=== PATIENT | female | born 1960 | race Caucasian/White ===

== ENCOUNTER 2019-06-05 08:44 | Outpatient (CLI) | payer OTHER, SELFPAY ==
[2019-06-05 09:19] LABS: Hematocrit 42.6 % (37.0-47.0); Hemoglobin 13.4 g/dL (12.0-15.0); Immature Platelet Fraction Pct 4.6 % (0.9-11.2); Mean Corpuscular HGB Conc 31.5 g/dl (32-36); Mean Corpuscular Hemoglobin 27.8 pg (26-34); Mean Corpuscular Volume 88.4 fl (80-100); Mean Platelet Volume 13.4 fl (7.4-10.4); Platelet Count Result 328 k/mm3 (150-375); Red Blood Count 4.82 M/mm3 (4.2-5.4); Red Cell Distribution Width 14.1 % (11.5-14.5); White Blood Count 4.8 K/mm3 (4.5-10.0)
[2019-06-05 09:43] LABS: Creatinine Urine 139.3 mg/dL
[2019-06-05 09:46] LABS: Alanine Aminotransferase 22 U/L (4-35); Albumin Level 4.5 g/dL (3.5-5.1); Alkaline Phosphatase 44 U/L (38-126); Aspartate Amino Transferase 32 U/L (14-36); Bilirubin,Total 0.3 mg/dL (0.2-1.3); Blood Urea Nitrogen 19 mg/dL (7-17); Calcium 9.2 mg/dL (8.4-10.2); Carbon Dioxide 28 mmol/L (22-30); Chloride 104 mmol/L (98-107); Cholesterol 145 mg/dL (0-200); Estimated Glomerular Filt Rate 57; Glucose 98 mg/dL (65-105); HDL Direct 60 mg/dL; Potassium 4.3 mmol/L (3.4-5.0); Sodium 139 mmol/L (137-145); Triglycerides 78 mg/dL (<150)
[2019-06-05 09:48] LABS: MALB Creatinine Ratio 8.8 mg/g (0-30); Microalbumin Urine Random 12.3 mg/L (0-16.7)
[2019-06-05 09:58] LABS: Free T4 Free Thyroxine 1.21 ng/mL (0.78-2.19); Vitamin D 25 Hydroxy 53.7 ng/mL
[2019-06-05 10:06] LABS: LDL Cholesterol Direct 57 mg/dL
[2019-06-05 10:12] LABS: Basophils Absolute Manual 0.04 K/mm3 (0.0-0.1); Basophils Percent Manual 1 % (0-1); Eosinophils Absolute Manual 0.09 K/mm3 (0.02-0.5); Eosinophils Percent Manual 2 % (0-4); Lymphocytes Absolute Manual 1.68 K/mm3 (1.1-4.5); Monocytes Absolute Manual 0.28 K/mm3 (0.1-0.90); Monocytes Percent Manual 6 % (3-9); Neutrophils Percent Manual 56 % (46-73); Platelet Estimate Adequate (Adequate); Total Cells Counted 100
[2019-06-05 10:13] LABS: Atypical Lymphocytes Present; Hypochromasia 2+ (NORMAL)
[2019-06-05 10:26] LABS: Total Triiodothyronine (T3) 0.99 NG/ML (0.97-1.69)
[2019-06-05 11:00] LABS: Parathyroid Intact 26.8 pg/mL (7.5-53.5)
== END 2019-06-05 08:45 | disposition home or self-care (01) ==
PROVIDERS: PCP Family Medicine; Visit Provider Family Medicine
DX: E78.2 Mixed hyperlipidemia (principal); I50.9 Heart failure, unspecified; E21.0 Primary hyperparathyroidism; E55.9 Vitamin D deficiency, unspecified; N18.2 Chronic kidney disease, stage 2 (mild); I12.9 Hypertensive chronic kidney disease with stage 1 through stage 4 chronic kidney disease, or unspecified chronic kidney disease
CPT/HCPCS: 36415; 80053; 80061; 82043; 82306; 83970; 84439; 84443; 84480; 85025; 85055

== ENCOUNTER 2019-09-03 14:43 | Emergency (ER) | payer OTHER, SELFPAY ==
--- NOTE | ~2019-09-03 | XR_ITS ---
EXAMINATION: XR chest 2V DATE: 09/03/2019 15:08 INDICATION: Shortness of breath. TECHNIQUE: Frontal and lateral views of the chest were obtained. COMPARISON: Chest 2 views 04/23/2016, CT abdomen 10/07/2016 FINDINGS: The chest demonstrates clear lungs without pneumonia, pleural effusion, or pneumothorax. Th e heart size is normal. IMPRESSION: 1. No acute cardiopulmonary disease. Reviewed, dictated and finalized at location A.
--- NOTE | 2019-09-03 14:47 | ECG_ITS ---
Measurements Intervals Tilly Rate: 74 P: 48 WI: 133 QRS: -29 QRSD: 97 T: 5 QT: 393 QTc: 438 Interpretive Statements SINUS RHYTHM NONSPECIFIC T-WAVE ABNORMALITY- ANTEROLAT/INF LEADS BORDERLINE ECG Electronically Signed On 09-03-2019 15:45:18 CDT by Cesar Win D.O.
[2019-09-03 14:49] VITALS: BP 157/90; PULSE 75; RESP 26; TEMP 36.4; O2SAT 100
[2019-09-03 15:03] LABS: Basophils Absolute Auto 0.1 K/mm3 (0.0-0.1); Eosinophils Absolute Auto 0.1 K/mm3 (0-0.3); Hemoglobin 14.3 g/dL (12.0-15.0); Immature Granulocyte Absolute 0.01 K/mm3 (0.00-0.031); Immature Granulocyte Percent A 0.2 % (0-0.5); Lymphocytes Absolute Auto 1.99 K/mm3 (0.9-3.2); Lymphocytes Percent Auto 39.3 % (18.3-44.2); Mean Corpuscular HGB Conc 33.3 g/dl (32-36); Mean Corpuscular Hemoglobin 28.4 pg (26-34); Mean Corpuscular Volume 85.3 fl (80-100); Mean Platelet Volume 13.1 fl (7.4-10.4); Monocytes Absolute Auto 0.3 K/mm3 (0.1-0.6); Monocytes Percent Auto 5.3 % (2.6-8.5); Neutrophils Absolute Auto 2.7 K/mm3 (1.3-6.7); Neutrophils Percent Auto 53.2 % (45.5-73.1); Platelet Count Result 387 k/mm3 (150-375); Red Blood Count 5.04 M/mm3 (4.2-5.4); Red Cell Distribution Width 13.9 % (11.5-14.5); White Blood Count 5.1 K/mm3 (4.5-10.0)
[2019-09-03 15:13] LABS: Blood Urea Nitrogen 16 mg/dL (7-17); Calcium 9.6 mg/dL (8.4-10.2); Carbon Dioxide 23 mmol/L (22-30); Chloride 106 mmol/L (98-107); Estimated Glomerular Filt Rate > 60; Glucose 135 mg/dL (65-105); Potassium 3.8 mmol/L (3.4-5.0); Sodium 139 mmol/L (137-145)
[2019-09-03 18:00] VITALS: BP 141/80; PULSE 60; RESP 17; O2SAT 100
[2019-09-03 18:13] VITALS: PULSE 58; O2SAT 100
--- NOTE | 2019-09-03 19:26 | ED.SOB ---
HPI - SOB/Dyspnea General Chief Complaint: Shortness of Breath/Dyspnea Stated Complaint: SOB Time Seen by Provider: 09/03/19 18:52 Source: patient Mode of arrival: ambulatory Limitations: no limitations History of Present Illness HPI Narrative: This is a 59 year old female that presents to the ER for cold symptoms x 2 days. Reports cough, myalgias, and headache. Reports she started to feel short of breath today which prompted her to be seen. Reports history of asthma. Denies fever or chest pain. Related Data Home Medications Medication Instructions Recorded Confirmed albuterol sulfate [Ventolin HFA] See Rx Instructions .ROUTE 09/03/19 09/03/19 .COMPLEX PRN budesonide-formoterol [Symbicort] INHALATION BID 09/03/19 fenofibrate mg DAILY 09/03/19 furosemide DAILY 09/03/19 lisinopril DAILY 09/03/19 sertraline mg DAILY 09/03/19 sertraline mg DAILY 09/03/19 simvastatin mg HS 09/03/19 Allergies Allergy/AdvReac Type Severity Reaction Status Date / Time No Known Allergies Allergy Verified 09/03/19 18:16 Review of Systems Review of Systems: Narrative: CONSTITUTIONAL: Denies fever ENT: Reports rhinorrhea, congestion. Denies sore throat, or otalgia. CARDIOVASCULAR: Denies chest pain RESPIRATORY: Reports cough and dyspnea. All systems reviewed & are unremarkable except as noted in HPI and below PMFSH Past Medical History Medical History (Updated 09/03/19 @ 20:31 by Patsy Mcduffie PA-C) History of asthma History of depression History of hyperlipidemia History of hypertension Family History Family History (Updated 09/20/16 @ 11:31 by DOCTOR UNKNOWN) Other Family history of elevated blood lipids Hypertension Social History Social History Smoking status: Never smoker Alcohol intake: current Gender identity (if verbalized by the patient): Female Exam Narrative: Exam Narrative: GENERAL: Well-appearing, well-nourished, and in no acute distress. HEAD: Normocephalic, atraumatic. EYES: EOMI. ENT: Nares clear, no rhinorrhea or epistaxis. Mucous membranes moist. Oropharynx without tonsillar hypertrophy exudate or other lesions. Bilateral TMs pearly renee non-bulging NECK: Supple. No adenopathy or masses. No carotid bruits or JVD CHEST: Clear to auscultation. No respiratory distress. No wheezes rales or rhonchi HEART: Regular rate and rhythm. No murmur heard. Normal peripheral pulses. EXTREMITIES: Normal range of motion. No edema. SKIN: Warm, dry, no rash. NEURO: No focal deficits. Alert and oriented x3. PSYCH: Normal mood and affect Course Vital Signs Vital signs: Vital Signs Temperature 97.6 F 09/03/19 14:49 Pulse Rate 75 09/03/19 14:49 Respiratory Rate 26 H 09/03/19 14:49 Blood Pressure 157/90 H 09/03/19 14:49 Pulse Oximetry 100 09/03/19 14:49 Temperature 97.6 F 09/03/19 14:49 Pulse Rate 58 L 09/03/19 18:13 Respiratory Rate 17 09/03/19 18:00 Blood Pressure 141/80 H 09/03/19 18:00 Pulse Oximetry 100 09/03/19 18:13 MDM - SOB/Dyspnea MDM Narrative Medical decision making narrative: Patient presents to the emergency department for cold symptoms x2 days. She is afebrile and nontoxic-appearing. Normal oxygen saturation on room air. CBC and metabolic panel without concerning findings. D-dimer is not elevated. Chest x-ray without acute changes. EKG without concerning changes. SARS-CoV-2 sent. Patient is stable felt appropriate further outpatient evaluation. Patient is to follow-up with primary care doctor. She was given warnings to return to the ER Lab Data Attestation: I reviewed the patient's lab results. Result diagrams: 09/03/19 14:54 09/03/19 14:54 Labs: Lab Results 09/03/19 09/03/19 09/03/19 Range/Units 14:54 14:54 14:54 WBC 5.1 (4.5-10.0) K/mm3 RBC 5.04 (4.2-5.4) M/mm3 Hgb 14.3 (12.0-15.0) g/dL Hct 43.0 (37.0-47.0) % MCV 85.3 (80-100) fl MCH 28.4 (26-34) pg MCHC 33.3
[2019-09-03 20:06] LABS: D Dimer 0.27 ug/mL (<0.48)
[2019-09-03 20:49] VITALS: BP 141/85; PULSE 87; RESP 18; TEMP 36.8; O2SAT 99
[2019-09-04 14:52] LABS: SARS-CoV-2 RNA PCR Negative
== END 2019-09-03 20:50 | disposition home or self-care (01) ==
PROVIDERS: Emergency Medicine; Physician Assistant; Emergency Provider Emergency Medicine; PCP Family Medicine
DX: Z20.828 Contact with and (suspected) exposure to other viral communicable diseases (principal); B34.9 Viral infection, unspecified; J45.909 Unspecified asthma, uncomplicated; F32.9 Major depressive disorder, single episode, unspecified; E78.5 Hyperlipidemia, unspecified; I10 Essential (primary) hypertension
CPT/HCPCS: 36415; 71046; 80048; 85025; 85055; 85380; 87635; 93005; 99284; C9803; U0003

== ENCOUNTER 2020-06-02 14:53 | Outpatient (CLI) | payer OTHER, SELFPAY ==
--- NOTE | ~2020-06-02 | MM_ITS ---
EXAMINATION: MM screening [facility] BI w mirna HISTORY: Screening TECHNIQUE: Craniocaudal and mediolateral oblique 3-D tomosynthesis images were obtained and synthetic 2-D images were generated. CAD analysis was submitted and interpreted. COMPARISON: Comparison to multiple prior studies sequentially, with oldest reviewed study dated 01/21. BREAST PARENCHYMAL COMPOSITION: There are scattered areas of fibroglandular density. FINDINGS: There is no evidence of suspicious mass, calcification, or architectural distortion to sugg est malignancy in either breast. There has been no suspicious interval change. IMPRESSION: 1. No mammographic evidence of malignancy. 2. Recommend routine screening mammography in one year. BI-RADS Category 1: Negative Reviewed, dictated and finalized at location A.
== END 2020-06-02 14:54 | disposition home or self-care (01) ==
PROVIDERS: PCP Family Medicine; Visit Provider Obstetrics & Gynecology
DX: Z12.31 Encounter for screening mammogram for malignant neoplasm of breast (principal)
CPT/HCPCS: 77063; 77067

== ENCOUNTER 2020-06-05 10:22 | Outpatient (CLI) | payer OTHER, SELFPAY | END 2020-06-05 10:23 | disposition home or self-care (01) | LOC: ANHCOVIDVC 10:23 | PROVIDERS: PCP Family Medicine | DX: Z23 Encounter for immunization (principal) | CPT/HCPCS: 0001A; 91300 ==

== ENCOUNTER 2020-06-26 10:25 | Outpatient (CLI) | payer OTHER, SELFPAY | END 2020-06-26 10:26 | disposition home or self-care (01) | LOC: ANHCOVIDVC 10:25 | PROVIDERS: PCP Family Medicine | DX: Z23 Encounter for immunization (principal) | CPT/HCPCS: 0002A; 91300 ==

== ENCOUNTER 2021-10-14 08:02 | Outpatient (CLI) | payer OTHER, SELFPAY ==
--- NOTE | ~2021-10-14 | MM_ITS ---
EXAMINATION: MM screening [facility] BI w mirna HISTORY: Screening TECHNIQUE: Craniocaudal and mediolateral oblique 3-D tomosynthesis images were obtained and synthetic 2-D images were generated. CAD analysis was submitted and interpreted. COMPARISON: Comparison to multiple prior studies sequentially, with oldest reviewed study dated 01/21. BREAST PARENCHYMAL COMPOSITION: The breasts are almost entirely fatty. FINDINGS: There is no evidence of suspicious mass, calcification, or architectural distortion to sugg est malignancy in either breast. There has been no suspicious interval change. IMPRESSION: 1. No mammographic evidence of malignancy. 2. Recommend routine screening mammography in one year. BI-RADS Category 1: Negative Reviewed, dictated and finalized at location A.
== END 2021-10-14 08:03 | disposition home or self-care (01) ==
PROVIDERS: PCP Family Medicine; Visit Provider Obstetrics & Gynecology Gynecology
DX: Z12.31 Encounter for screening mammogram for malignant neoplasm of breast (principal)
CPT/HCPCS: 77063; 77067

== ENCOUNTER 2023-05-16 07:40 | Outpatient (CLI) | payer OTHER, SELFPAY ==
--- NOTE | ~2023-05-16 | MM_ITS ---
EXAMINATION: MM screening [facility] BI w mirna HISTORY: Screening mammogram TECHNIQUE: Craniocaudal and mediolateral oblique 3-D tomosynthesis images were obtained and synthetic 2-D images were generated. CAD analysis was submitted and interpreted. COMPARISON: 10/10/2021, 06/02/2020 bilateral screening mammogram examinations BREAST PARENCHYMAL COMPOSITION: The breasts are almost entirely fatty. FINDINGS: There is no evidence of suspicious mass, calcification, or architectural distortion to sugg est malignancy in either breast. There has been no suspicious interval change. IMPRESSION: 1. No mammographic evidence of malignancy. 2. Recommend routine screening mammography in one year. BI-RADS Category 1: Negative Reviewed, dictated and finalized at location A.
== END 2023-05-16 07:41 | disposition home or self-care (01) ==
LOC: ANHIMG 07:43
PROVIDERS: PCP Family Medicine; Visit Provider Nurse Practitioner
DX: Z12.31 Encounter for screening mammogram for malignant neoplasm of breast (principal)
CPT/HCPCS: 77063; 77067

== ENCOUNTER 2023-08-18 13:43 | Outpatient (CLI) | payer OTHER, SELFPAY ==
--- NOTE | ~2023-08-18 | DEXA_ITS ---
? Bone Density Report? Name:? ZAHEER COWAN Patient ID:??? [id number] Age:? 63 Sex:? Female Ethnicity:? White Date of : 1960 Indication: postmenopausal; screening for osteoporosis; height loss; Referring Provider: YUDI, JEFFERSON Study: Bone densitometry was performed. Exam Date: August 18, 2023 Accession number: [id number] Bone Density: Region? BMD??? T-score? Z-score?? Classification AP Spine(L1-L4)? 1.099??? 0.5?2.2? Normal Femoral Neck (Left)? 0.794?? -0.5? 1.0? Normal Total Hip (Left)? 0.940??? 0.0? 1.1? Normal Femoral Neck (Right)? 0.799?? -0.4? 1.0? Normal Total Hip (Right)? 0.938??? 0.0? 1.1? Normal Femoral Neck Mean? 0.796?? -0.5? 1.0? Normal Total Hip Mean? 0.939??? 0.0? 1.1? Normal World Health Organization criteria for BMD impression classify patients as: Normal (T-score at or above -1.0), Osteopenia (T-score between -1.0 and -2.5), or Osteoporosis (T-score at or below -2.5). 10-year Fracture Risk: FRAX not reported because: ? All T-scores for Spine Total, Hip Total, Femoral Neck at or above -1.0 Clinical Information Provided by Patient: Has used the following medications: Vitamin D, Calcium Patient maximum height was 70 Menopause Age: 49 No regular weight bearing exercise Drinks caffeinated beverages Onset of menses at age 10 Number of children 0 Impression: The patient has normal bone mass. Discussion: BONE DENSITY IS ABOVE THE MINIMUM DESIRABLE LEVEL AT ALL SKELETAL SITES TESTED. This patient?s bone mineral density is above the minimum desirable level (T- score -1.0 or better) at all sites measured. The patient should follow a healthful lifestyle (good nutrition with adequate calcium and vitamin D, and appropriate weight-bearing exercise). Follow-Up: Consider repeating this study in 5 years or sooner if there is some new clinical indication. Reported by: Dr. Sumanth Omalley on 08/19/2023 10:22:00 AM. ANUSHKA
== END 2023-08-18 13:44 | disposition home or self-care (01) ==
LOC: CHSIMG 13:44
PROVIDERS: PCP Family Medicine; Visit Provider Nurse Practitioner Women's Health
DX: Z78.0 Asymptomatic menopausal state (principal)
CPT/HCPCS: 77080

== ENCOUNTER 2023-09-29 07:14 | Day surgery (SDC) | payer OTHER, SELFPAY ==
[2023-09-01 12:00] VITALS: BMI 36.4
[2023-09-15 10:28] VITALS: BMI 36.7
[2023-09-29 08:00] VITALS: BP 141/90; PULSE 75; RESP 18; TEMP 36.3; O2SAT 99; BMI 36.3
--- NOTE | 2023-09-29 08:08 | PM.HPGS ---
History of Present Illness History of Present Illness Consent: Risks, benefits, and alternatives have been discussed and questions answered. Patient agrees to proceed with procedure. Chief complaint: Family history of colon cancer Narrative: Lesvia Fairchild is a 63 year old female presents for screening colonoscopy. Patient's mother had colon cancer. Patient reports that her own weight appetite and bowel movements are normal. She denies abdominal pain. Patient has had no bleeding. Significant her mother had colon cancer. Review of Systems Review of Systems: All systems reviewed & are unremarkable except as noted in HPI and below PMFSH Past Medical History Medical History (Updated 09/29/23 @ 08:09 by Alek Cortes MD) History of asthma History of depression History of hyperlipidemia History of hypertension Family History Family History (Updated 09/20/16 @ 11:31 by DOCTOR UNKNOWN) Other Family history of elevated blood lipids Hypertension Social History Social History Smoking status: Never smoker Alcohol intake: current Alcohol use details: occasional Substance use: current Substance use type: marijuana Other substance usage details: gummy occasionally Living arrangements: with family Gender identity (if verbalized by the patient): Female Spiritual care concerns: No Meds Home Medications and Allergies Home Medications Medication Instructions Recorded Confirmed Type albuterol sulfate 90 mcg/actuation See Rx Instructions .Route 09/03/19 09/29/23 History aerosol inhaler (Ventolin HFA) .COMPLEX PRN Shortness Of Breath Or Wheezing budesonide-formoterol HFA 80 1 inh inhalation BID PRN other 09/03/19 09/29/23 History mcg-4.5 mcg/actuation aerosol inhaler (Symbicort) fenofibrate 160 mg tablet 160 mg PO DAILY 09/03/19 09/29/23 History furosemide 20 mg tablet 20 mg PO DAILY 09/03/19 09/29/23 History lisinopril 10 mg tablet 10 mg PO DAILY 09/03/19 09/29/23 History sertraline 100 mg tablet 100 mg PO DAILY 09/03/19 09/29/23 History sertraline 50 mg tablet 50 mg PO DAILY 09/03/19 09/29/23 History Allergies Allergy/AdvReac Type Severity Reaction Status Date / Time No Known Allergies Allergy Verified 09/29/23 07:57 Vital Signs Vital Signs - 24 hr 09/29/23 08:00 Temperature 97.3 F L Pulse Rate 75 Respiratory Rate 18 Blood Pressure 141/90 H Pulse Oximetry 99 Oxygen Delivery Room Air Exam Narrative: Physical exam reveals patient to be alert. Signs stable. HEENT exam is unremarkable. Patient is anicteric. Lungs are clear to auscultation and percussion. Heart is without murmur extra sounds. Abdomen bowel sounds are present soft nontender with no organomegaly. Digital external rectal exam is normal. Assessment and Plan Assessment and plan (1) Family history of colon cancer in mother: Code(s): Z80.0 - Family history of malignant neoplasm of digestive organs Status: Acute Assessment and Plan: Mother had colon cancer. Plan for patient to have surveillance exam at 5 year intervals.
[2023-09-29] MEDS: LACTATED RINGERS 1,000 ML 150 ML IV CONT (09:02)
--- NOTE | 2023-09-29 09:54 | P.PNAN_ITS ---
Anes - Initial Pre Proc Eval Procedure: Operation Date: 09/29/23 09:30 Proposed Procedures p Screening Colonoscopy - Alek Cortes MD Date/Time: 09/29/23 09:54 Surgeon: Alek Cortes MD Pre Op Diagnosis: Family history of colon cancer Patient Data Age: 63 Gender: F Height: 1.75 m Weight: 111.7 kg Last Vital Signs Temp 36.3 C L 09/29/23 08:00 Pulse 75 09/29/23 08:00 Resp 18 09/29/23 08:00 BP 141/90 H 09/29/23 08:00 Pulse Ox 99 09/29/23 08:00 O2 Del Method Room Air 09/29/23 08:00 Allergies Allergy/AdvReac Type Severity Reaction Status Date / Time No Known Allergies Allergy Verified 09/29/23 07:57 Home Medications Medication Instructions Recorded Confirmed Type albuterol sulfate 90 mcg/actuation See Rx Instructions .Route 09/03/19 09/29/23 History aerosol inhaler (Ventolin HFA) .COMPLEX PRN Shortness Of Breath Or Wheezing budesonide-formoterol HFA 80 1 inh inhalation BID PRN other 09/03/19 09/29/23 History mcg-4.5 mcg/actuation aerosol inhaler (Symbicort) fenofibrate 160 mg tablet 160 mg PO DAILY 09/03/19 09/29/23 History furosemide 20 mg tablet 20 mg PO DAILY 09/03/19 09/29/23 History lisinopril 10 mg tablet 10 mg PO DAILY 09/03/19 09/29/23 History sertraline 100 mg tablet 100 mg PO DAILY 09/03/19 09/29/23 History sertraline 50 mg tablet 50 mg PO DAILY 09/03/19 09/29/23 History Patient hx anesthesia problems: none Family hx anesthesia problems: none Results Review: All pre-operative results and documents have been reviewed as part of the pre-operative evaluation. [facility] Past Medical History Medical History History of asthma History of depression History of hyperlipidemia History of hypertension Family History Family History Other Family history of elevated blood lipids Hypertension Social History Social History Smoking status: Never smoker Alcohol intake: current Alcohol use details: occasional Substance use: current Substance use type: marijuana Other substance usage details: gummy occasionally Living arrangements: with family Gender identity (if verbalized by the patient): Female Spiritual care concerns: No Anes - Eval Final PreProcedure Day of Procedure 09/29/23 09:54 Patient weight: obese Heart: regular rate and rhythm Lungs: clear to auscultation Airway: Mallampati scale class II Neurological: alert and oriented Last oral intake: >/= 8 hours ASA classification: III Emergent: no Anesthetic plan: proceed Anesthesia type and monitoring: general GIVS and standard monitoring Results Review: All pre-operative results and documents have been reviewed as part of the pre- operative evaluation. Informed Consent: The patient's anesthetic plan and its attendant risks and benefits were discussed with the patient/family/POA. Questions were solicited and answers provided to the satisfaction of the patient/family/POA.
[2023-09-29 10:22] VITALS: BP 112/67; PULSE 65; RESP 15; O2SAT 100
--- NOTE | 2023-09-29 10:28 | WPDANESPN ---
Anes - Prog Note Post-Op Date/Time: 09/29/23 10:28 Cardiovascular status: normal Respiratory status: normal Airway patency: baseline Mental status: baseline Post-Op hydration status: normal Vital Signs: Last Vital Signs Temp 36.3 C L 09/29/23 08:00 Pulse 65 09/29/23 10:22 Resp 15 09/29/23 10:22 BP 112/67 09/29/23 10:22 Pulse Ox 100 09/29/23 10:22 O2 Del Method Room Air 09/29/23 10:22 Pain Score (VAS): 0 I/O: Intake & Output 09/28/23 09/29/23 09/29/23 23:59 07:59 15:59 Intake Total 450 Balance 450 Patient Feedback: Patient satisfied with anesthetic care.
[2023-09-29 10:32] VITALS: BP 115/68; PULSE 55; RESP 16; O2SAT 97
[2023-09-29 10:42] VITALS: BP 120/69; PULSE 60; RESP 18; O2SAT 100
== END 2023-09-29 10:53 | disposition home or self-care (01) ==
PROVIDERS: PCP Family Medicine; Visit Provider Internal Medicine Gastroenterology
PROC: 0DJD8ZZ Inspection of Lower Intestinal Tract, Via Natural or Artificial Opening Endoscopic (ICD-10-PCS; CPT 45378; principal; 2023-09-29 09:30)
DX: Z80.0 Family history of malignant neoplasm of digestive organs (principal); K64.8 Other hemorrhoids
CPT/HCPCS: 45378

== ENCOUNTER 2024-06-26 15:53 | Emergency (ER) | payer OTHER, SELFPAY ==
[2024-06-26] VITALS (8 sets, daily range): BP systolic 114–185; BP diastolic 75–83; PULSE 58–70; RESP 15–19; TEMP 36.3–36.7; O2SAT 96–100
--- NOTE | ~2024-06-26 | CT_ITS ---
CLINICAL INDICATION: Right lower quadrant pain COMPARISON: . TECHNIQUE: Multiple contiguous axial images of the abdomen and pelvis were performed following the ad ministration of with 100 mL Omnipaque-350 intravenous contrast The dose-length product (DLP) was 1254.71 mGy-cm. Automated exposure control and iterative reconstruction technique were employed. FINDINGS/OBSERVATIONS: Visualized lower thorax: The bilateral lung bases are clear. The heart is of normal size, without pericardial effusion. Small hiatal hernia is present. Liver: The liver demonstrates homogeneous enhancement and is not enlarged. Gallbladder and biliary system: The gallbladder is surgically absent. Pancreas: The pancreas enhances homogeneously without ductal dilatation. Spleen: The spleen enhances homogeneously and is not enlarged. Kidneys: Subcentimeter foci of decreased attenuation within the bilateral kidneys, statistically repr esenting cysts but too small to characterize. The remainder of the bilateral kidneys otherwise enhance symmetrically without hydronephrosis or otis l calculi. Adrenal glands: Unremarkable. Gastrointestinal tract: Colonic diverticulosis without surrounding inflammatory change. The appendix is not definitively visualized. However, no pericecal inflammatory change is identified suggest the presence of acute appendicitis. Vasculature: Unremarkable. Lymph nodes: No pathologically enlarged or morphologically suspicious lymph nodes within the retroperitoneum or at the root of the mesentery. Pelvic structures: The bladder is minimally distended, and otherwise unremarkable. The uterus is nodular, anteverted and anteflexed with punctate calcifications suggesting prior fibroi d disease. Body wall and musculoskeletal: Small fat-containing umbilical hernia. Age-appropriate degenerative disease within the lumbosacral spine. IMPRESSION: No acute findings within the abdomen or pelvis to extent plain patient's presenting symptoms, as deta iled above. Reviewed, dictated and finalized at location A. IMPRESSION: No acute findings within the abdomen or pelvis to extent plain patient's presen ting symptoms, as detailed above.
--- OUTSIDE RECORDS SUMMARY | 2024-06-26 15:56 | XMS_ITS | Referral Summary ---
Author Organization [facility] [address] [place] [id number] Care Team Providers Care Foreign Service Officer Name Role Phone Gomez Bernal MD Primary Care Provider [phone] Allergies No known active allergies Medications SYMBICORT 80-4.5 mcg/actuation inhaler Inhale 2 puffs daily. 03/03/2017 Active VITAMIN D3 2,000 unit capsule Take 2,000 Units by mouth nightly. 03/07/2017 Active fenofibrate (TRIGLIDE) 160 mg tablet Take 160 mg by mouth nightly. 12/20/2016 Active furosemide (LASIX) 20 mg tablet Take 20 mg by mouth daily. 03/13/2017 Active lisinopril (PRINIVIL,ZESTRI L) 10 mg tablet Take 10 mg by mouth nightly. 03/13/2017 Active sertraline (ZOLOFT) 50 mg tabletIndication s:take with 100mg to total 150 mg Take 50 mg by mouth daily. 03/13/2017 Active sertraline (ZOLOFT) 100 mg tabletIndication s:take with 50mg to total 150 mg Take 100 mg by mouth daily. 03/13/2017 Active simvastatin (ZOCOR) 20 mg tablet Take 20 mg by mouth nightly. 03/14/2017 Active omeprazole (PriLOSEC) 10 mg capsule Take 10 mg by mouth daily. Active Active Problems Problem Noted Date Diagnosed Date Vitamin D deficiency 10/18/2017 Assessment & Plan (10/18/2017 3:20 PM CDT): Check 25 oh vit D Treat as indicated, since low vit D can drive PTH higher. Primary hyperparathyroidism 03/15/2017 Assessment & Plan (12/07/2017 1:36 PM CDT): Patient is status post right inferior parathyroidectomy. Patient is chemically back to normal with an intact PTH: 25. Patient had unremarkable postoperative course. Patient can follow back up as needed. Assessment & Plan (11/08/2017 12:16 PM CDT): Patient has been diagnosed chemically with primary hyperparathyroidism. Initial diagnostic localization imaging was unsuccessful in identifying the pathologic adenoma. A thorough discussion took place today with the patient pertaining to this medical condition. Patient was provided with pamphlet that helps explain the pathophysiology of hyperparathyroidism. Medical and surgical options were discussed with the patient. Patient will be scheduled for a 4D CT scan of the neck for localization. I have had much better success with localization using this diagnostic imaging. Definitive management would consist of surgical excision of the pathologic single or double gland adenoma. Patient will be scheduled for surgery after she has completed the diagnostic testing. Assessment & Plan (10/18/2017 3:42 PM CDT): I had a lengthy discussion with the patient about pathophysiology of the conditon. She has primary hyperparathyroidism, as indicated by persistently elevated Ca and PTH, with target organ damage as indicated by significant hypercalciuria and osteopenia He in spite of the negative parathyroid scan, neck exploration for parathyroidectomy is indicated and recommended The patient is referred to Dr. Gipson Assessment & Plan (06/14/2017 9:43 AM CDT): Request parathyroid scan 24 h urine referral to surgery once parathyroid scan is available. Assessment & Plan (03/15/2017 10:55 AM NON CLINICAL ADVISOR): The pathophysiology of the condition ,meaning the role of PTH in controlling serum levels , the effects of elevated PTH on serum calcium levels and its detrimental effects on the bone and kidneys were also explained It was also explained to the patient that the only effective and curative treatment is surgery, e.g. parathyroidectomy. Although this can be a very indolent condition, there are clear indications for surgery, e.g. bone density loss ( as indicated by osteopenia or osteoporosis on a DEXA bone density ) excessive hypercalciuria and less clear, symptoms related to high calcium ( depression, excessive constipation, body aches , etc ) Will request DEXA, 24 h urine calcium and parathyroid scan Will recheck PTH and serum calcium levels Recommendations to follow. Social History Tobacco Use Types Packs/Day Years Used Date Smoking Tobacco: Never Smokeless Tobacco: Never Alcohol Use Standard Drinks/Week Comments Yes 0 (1 standard drink = 0.6 oz pur e alcohol) occasionally PHQ-2 Answer Date Recorded PHQ-2 Score 0 10/13/2018 Comments No Sex and Gender Information Value Date Recorded Sex Assigned at Not on file Legal Sex Female 8:25 PM NON CLINICAL ADVISOR Gender Identity Not on file Sexual Orientation Not on file Last Filed Vital Signs Vital Sign Reading Time Taken Comments Blood Pressure 118/76 12/07/2017 1:20 PM CDT Pulse 63 12/07/2017 1:20 PM CDT Temperature 36.1 C (97 F) 11/29/2017 12:25 PM CDT Respiratory Rate 18 12/07/2017 1:20 PM CDT Oxygen Saturation 92% 11/29/2017 12:55 PM CDT Inhaled Oxygen Concentration - - Weight 121.6 kg (268 lb) 12/07/2017 1:20 PM CDT Height 177.8 cm (5' 10 ) 12/07/2017 1:20 PM CDT Body Mass Index 38.45 12/07/2017 1:20 PM CDT Plan of Treatment Not on file Insurance [facility] H[facility]/PPO Address: [facility] [address] [place] [address] [facility] CHOICE PLUS [facility] H[facility]/PPO Address: [place] [address] Care Teams Foreign Service Officer Relationship Specialty Start Date End Date Gomez Bernal MD PCP - General Family Medicine 02/18/17
--- OUTSIDE RECORDS SUMMARY | 2024-06-26 15:56 | XMS_ITS | Clinical Summary ---
Author Organization [facility] Building [address] [place] [id number] Care Team Providers Care Thermodynamics Engineer Name Role Phone Gomez Bernal MD Primary Care Provider [phone] Allergies No known active allergies Medications SYMBICORT [...] available. Assessment & Plan (03/15/2017 10:55 AM GRAPHITE DISK ASSEMBLER): The pathophysiology of the condition ,meaning the [...] and serum calcium levels Recommendations to follow. Surgical History Surgery Date Site/Laterality Comments HERNIA REPAIR CHOLECYSTECTOMY 02/22/2016 - 02/20/2017 ENDOMETRIAL ABLATION Medical History Medical History Date Comments Hypertension Hyperlipidemia Asthma GERD (gastroesophageal reflux disease) Depression Parathyroid disorder Family History Medical History Relation Name Comments Hypertension Father Cancer Mother colon cancer Hypertension Mother Relation Name Status Comments Father Mother Social History Tobacco Use Types Packs/Day Years Used Date Smoking Tobacco: Never Smokeless Tobacco: Never Alcohol Use Standard Drinks/Week Comments Yes 0 (1 standard drink = 0.6 oz pur e alcohol) occasionally PHQ-2 Answer Date Recorded PHQ-2 Score 0 10/13/2018 Comments No Sex and Gender Information Value Date Recorded Sex Assigned at Not on file Legal Sex Female 8:25 PM GRAPHITE DISK ASSEMBLER Gender Identity Not on file Sexual Orientation Not on file Obstetrics History Last Filed Vital Signs Vital Sign Reading [...] Plan of Treatment Not on file Insurance [facility] CHOICE PLUS Care Teams Thermodynamics Engineer Relationship Specialty Start Date End Date Gomez Bernal MD PCP - General Family Medicine 02/18/17
--- NOTE | 2024-06-26 16:15 | ED.ABDPAIN ---
HPI - Abdominal Pain General Chief Complaint: Urogenital-Female <Keira Alcantara III, DO - Last Filed: 06/26/24 18:57> Stated Complaint: Poss kidney stone-right flank pain <Keira Alcantara III, DO - Last Filed: 06/26/24 18:57> Time Seen by Provider: 06/26/24 16:07 <Keira Alcantara III, DO - Last Filed: 06/26/24 18:57> History of Present Illness HPI narrative: Pt presents with rlq abdominal pain radiating around to right flank since yesterday. Pt says pain is constant. Was doing some cleaning before but did not feel like she injured herself. Pt denies fever or nausea or vomiting or dysuria or frequency. <Keira Alcantara III, DO - Last Filed: 06/26/24 18:57> Related Data Home Medications: Home Medications ?Medication ?Instructions ?Recorded ?Confirmed ?Last Taken ?Type albuterol sulfate 90 mcg/actuation See Rx Instructions .Route 09/03/19 09/29/23 Unknown History aerosol inhaler (Ventolin HFA) .COMPLEX PRN Shortness Of Breath Or Wheezing budesonide-formoterol HFA 80 1 inh inhalation BID PRN other 09/03/19 09/29/23 09/28/23 History mcg-4.5 mcg/actuation aerosol inhaler (Symbicort) fenofibrate 160 mg tablet 160 mg PO DAILY 09/03/19 09/29/23 09/28/23 History furosemide 20 mg tablet 20 mg PO DAILY 09/03/19 09/29/23 09/28/23 History lisinopril 10 mg tablet 10 mg PO DAILY 09/03/19 09/29/23 09/28/23 History sertraline 100 mg tablet 100 mg PO DAILY 09/03/19 09/29/23 09/28/23 History sertraline 50 mg tablet 50 mg PO DAILY 09/03/19 09/29/23 09/28/23 History <Keira Alcantara III, DO - Last Filed: 06/26/24 18:57> Allergies/Adverse Reactions: Allergies Allergy/AdvReac Type Severity Reaction Status Date / Time No Known Allergies Allergy Verified 06/26/24 16:10 <Keira Alcantara III, DO - Last Filed: 06/26/24 18:57> Review of Systems Review of Systems: All systems reviewed & are unremarkable except as noted in HPI and below <Keira Ramos Alcantara III, DO - Last Filed: 06/26/24 18:57> PMFSH Past Medical History Medical History: Medical History History of asthma History of depression History of hyperlipidemia History of hypertension <Keira Ramos Alcantara III, DO - Last Filed: 06/26/24 18:57> Family History Family History: Family History Other Family history of elevated blood lipids Hypertension <Keira Ramos Alcantara III, DO - Last Filed: 06/26/24 18:57> Social History Social History: Social History Smoking status: Never smoker Alcohol intake: current Alcohol use details: occasional Substance use: current Substance use type: marijuana Other substance usage details: gummy occasionally Living arrangements: with family Gender identity (if verbalized by the patient): Female Spiritual care concerns: No <Keira Ramos Alcnatara III, DO - Last Filed: 06/26/24 18:57> Exam Const: General: healthy appearing and no acute distress <Keira Ramos Alcantara III, DO - Last Filed: 06/26/24 18:57> Nutritional Appearance: well nourished <Keira Ramos Alcantara III, DO - Last Filed: 06/26/24 18:57> Orientation/consciousness: patient oriented x3 <Keira Ramos Alcantara III, DO - Last Filed: 06/26/24 18:57> Limitations: no limitations <Keira Ramos Alcantara III, DO - Last Filed: 06/26/24 18:57> Resp: Effort & Inspection: normal respiratory effort <Keira Ramos Alcantara III, DO - Last Filed: 06/26/24 18:57> Auscultation: clear to auscultation bilaterally <Keira Ramos Alcantara III, DO - Last Filed: 06/26/24 18:57> Cardio: Rate: regular rate <Keira Ramos Alcantara III, DO - Last Filed: 06/26/24 18:57> Rhythm: regular rhythm <Keira Ramos Alcantara III, DO - Last Filed: 06/26/24 18:57> GI: GI Palp: Yes Soft to palpation and Yes Tenderness to palpation present (GI) (rlq) <Keira Ramos Alcantara III, DO - Last Filed: 06/26/24 18:57> Auscultation: normal bowel sounds <Keira Ramos Alcantara III, DO - Last Filed: 06/26/24 18:57> Back/Spine/Pelvis: Back: CVA tenderness (right) <Keira Ramos Alcantara III, DO - Last Filed: 06/26/24 18:57> Skin: General skin exam: normal color <Keira Ramos Alcantara III, DO - Last Filed: 06/26/24 18:57> Rashes: no rashes <Keira Ramos Alcantara III, DO - Last Filed: 06/26/24 18:57> Wounds: no wounds <Keira Ramos Alcantara III, DO - Last Filed: 06/26/24 18:57> Neuro: General: patient oriented x3, moves all extremities, no meningeal signs and no focal motor deficits <Keira Ramos Alcantara III, DO - Last Filed: 06/26/24 18:57> Speech: normal speech <Keira Ramos Alcantara III, DO - Last Filed: 06/26/24 18:57> Extrem: General: normal to inspection <Keira Ramos Alcantara III, DO - Last Filed: 06/26/24 18:57> Psych: Mental Status: mental status grossly normal <Keira Ramos Alcantara III, DO - Last Filed: 06/26/24 18:57> Affect: normal affect <Keira Ramos Alcantara III, DO - Last Filed: 06/26/24 18:57> Attitude: cooperative <Keira Ramos Alcantara III, DO - Last Filed: 06/26/24 18:57> Course Reevaluation(s) Reevaluation #1: CT is neg for acute abnormality; patient has no new abdominal pain or nausea, rpt exam benign; agreeable to outpt mgmt (has appt in a few days with PCP) and return precautions <Kim Alejandro MD - Last Filed: 06/26/24 21:20> Vital Signs Vital signs: Vital Signs Temperature 97.8 F 06/26/24 16:04 Temperature 97.4 F L 06/26/24 18:00 Pulse Rate 63 06/26/24 19:34 Respiratory Rate 15 06/26/24 19:34 Blood Pressure 121/75 06/26/24 19:34 Pulse Oximetry 100 06/26/24 19:34 <Keira Alcantara III, DO - Last Filed: 06/26/24 18:57> Vital Signs Temperature 97.8 F 06/26/24 16:04 Temperature 97.4 F L 06/26/24 18:00 Pulse Rate 63 06/26/24 19:34 Respiratory Rate 15 06/26/24 19:34 Blood Pressure 121/75 06/26/24 19:34 Pulse Oximetry 100 06/26/24 19:34 <Kim Alejandro MD - Last Filed: 06/26/24 21:20> MDM - Abdominal Pain MDM Narrative Medical decision making narrative: Pt presents with rlq abd pain and right flank pain. could be appendicitis or uti or pyelonephrits or kidney stone amongst others. will get CT scan and labs and UA and give some morphine for pain. awaiting CT results. will turn over to Dr Alejandro at 1900. <Keira Alcantara III, DO - Last Filed: 06/26/24 18:57> Lab Data Result diagrams: 06/26/24 16:14 06/26/24 16:14 <Keira Alcantara III, DO - Last Filed: 06/26/24 18:57> Labs: Lab Results 06/26/24 06/26/24 06/26/24 Range/Units 16:14 17:21 17:26 WBC 7.1 (4.5-10.0) K/mm3 RBC 4.89 (4.2-5.4) M/mm3 Hgb 13.9 (12.0-15.0) g/dL Hct 42.9 (37.0-47.0) % MCV 87.7 (80-100) fl MCH 28.4 (26-34) pg MCHC 32.4 (32-36) g/dl RDW 13.8 (11.5-14.5) % Plt Count 277 (150-375) k/mm3 MPV 12.5 H (7.4-10.4) fl Immature Gran % (Auto) 0.1 (0-0.5) % Neut % (Auto) 62.8 (45.5-73.1) % Lymph % (Auto) 26.8 (18.3-44.2) % [place] % (Auto) 7.7 (2.6-8.5) % Eos % (Auto) 1.6 (0-4.4) % Baso % (Auto) 1.0 (0.2-1.2) % Lymph # (Auto) 1.89 (0.9-3.2) K/mm3 [place] # (Auto) 0.5 (0.1-0.6) K/mm3 Eos # (Auto) 0.1 (0-0.3) K/mm3 Baso # (Auto) 0.1 (0.0-0.1) K/mm3 Abs Immat Gran (auto) 0.01 (0.00-0.031) K/mm3 Absolute Neuts (auto) 4.4 (1.3-6.7) K/mm3 Absolute Nucleated RBC 0.000 (0.0-0.012) K/mm3 Nucleated RBC % 0.0 (0.0-0.2) % PT 12.8 (11.1-14.7) Seconds INR 0.9 APTT 29.1 (22.3-36.8) Seconds Sodium 140 (137-145) mmol/L Potassium 4.0 (3.4-5.0) mmol/L Chloride 105 (98-107) mmol/L Carbon Dioxide 24 (22-30) mmol/L Anion Gap 11 (4-12) mmol/L BUN 24 H (7-17) mg/dL Creatinine 0.91 (0.7-1.0) mg/dL Estim Creat Clear Calc 75 ml/min Estimated GFR > 60 (59 - ) Glucose 103 (65-110) mg/dL Calcium 9.2 (8.4-10.2) mg/dL Total Bilirubin 0.5 (0.2-1.3) mg/dL AST 35 (14-36) U/L ALT 22 (6-35) U/L Alkaline Phosphatase 47 (38-126) U/L Total Protein 8.0 (6.3-8.2) g/dL Albumin 4.8 (3.5-5.1) g/dL Lipase 91 (23-300) U/L Urine Color Yellow (Yellow) Urine Appearance Clear (Clear) Urine pH 5.0 (5.0-9.0) Ur Specific [place] 1.018 (1.001-1.035) Urine Protein Negative (Negative) mg/dL Urine Glucose (UA) Negative (Negative) mg/dL Urine Ketones Negative (Negative) mg/dL Ur Blood (Man) Negative (Negative) Urine Nitrate Negative (Negative) Urine Bilirubin Negative (Negative) Urine Urobilinogen 0.2 (<2.0) mg/dL Leukocyte Esterase Rfl Negative (Negative) UZMA/UL POC Urine HCG, Qual Negative (Negative) <Keira Beasley Alcantara III, DO - Last Filed: 06/26/24 18:57> Lab Results 06/26/24 06/26/24 06/26/24 Range/Units 16:14 17:21 17:26 WBC 7.1 (4.5-10.0) K/mm3 RBC 4.89 (4.2-5.4) M/mm3 Hgb 13.9 (12.0-15.0) g/dL Hct 42.9 (37.0-47.0) % MCV 87.7 (80-100) fl MCH 28.4 (26-34) pg MCHC 32.4 (32-36) g/dl RDW 13.8 (11.5-14.5) % Plt Count 277 (150-375) k/mm3 MPV 12.5 H (7.4-10.4) fl Immature Gran % (Auto) 0.1 (0-0.5) % Neut % (Auto) 62.8 (45.5-73.1) % Lymph % (Auto) 26.8 (18.3-44.2) % [place] % (Auto) 7.7 (2.6-8.5) % Eos % (Auto) 1.6 (0-4.4) % Baso % (Auto) 1.0 (0.2-1.2) % Lymph # (Auto) 1.89 (0.9-3.2) K/mm3 [place] # (Auto) 0.5 (0.1-0.6) K/mm3 Eos # (Auto) 0.1 (0-0.3) K/mm3 Baso # (Auto) 0.1 (0.0-0.1) K/mm3 Abs Immat Gran (auto) 0.01 (0.00-0.031) K/mm3 Absolute Neuts (auto) 4.4 (1.3-6.7) K/mm3 Absolute Nucleated RBC 0.000 (0.0-0.012) K/mm3 Nucleated RBC % 0.0 (0.0-0.2) % PT 12.8 (11.1-14.7) Seconds INR 0.9 APTT 29.1 (22.3-36.8) Seconds Sodium 140 (137-145) mmol/L Potassium 4.0 (3.4-5.0) mmol/L Chloride 105 (98-107) mmol/L Carbon Dioxide 24 (22-30) mmol/L Anion Gap 11 (4-12) mmol/L BUN 24 H (7-17) mg/dL Creatinine 0.91 (0.7-1.0) mg/dL Estim Creat Clear Calc 75 ml/min Estimated GFR > 60 (59 - ) Glucose 103 (65-110) mg/dL Calcium 9.2 (8.4-10.2) mg/dL Total Bilirubin 0.5 (0.2-1.3) mg/dL AST 35 (14-36) U/L ALT 22 (6-35) U/L Alkaline Phosphatase 47 (38-126) U/L Total Protein 8.0 (6.3-8.2) g/dL Albumin 4.8 (3.5-5.1) g/dL Lipase 91 (23-300) U/L Urine Color Yellow (Yellow) Urine Appearance Clear (Clear) Urine pH 5.0 (5.0-9.0) Ur Specific [place] 1.018 (1.001-1.035) Urine Protein Negative (Negative) mg/dL Urine Glucose (UA) Negative (Negative) mg/dL Urine Ketones Negative (Negative) mg/dL Ur Blood (Man) Negative (Negative) Urine Nitrate Negative (Negative) Urine Bilirubin Negative (Negative) Urine Urobilinogen 0.2 (<2.0) mg/dL Leukocyte Esterase Rfl Negative (Negative) UZMA/UL POC Urine HCG, Qual Negative (Negative) <Kim Alejandro MD - Last Filed: 06/26/24 21:20> Imaging Data Radiologist's impression: ITS Impressions Abdomen/Pelvis CT 06/26/24 20:35 IMPRESSION: No acute findings within the abdomen or pelvis to extent plain patient's presenting symptoms, as detailed above. <Keira Alcantara III, DO - Last Filed: 06/26/24 18:57> ITS Impressions Abdomen/Pelvis CT 06/26/24 20:35 IMPRESSION: No acute findings within the abdomen or pelvis to extent plain patient's presenting symptoms, as detailed above. <Kim Alejandro MD - Last Filed: 06/26/24 21:20> Discharge Plan Discharge Clinical Impression: Abdominal pain <Keira Alcantara III, DO - Last Filed: 06/26/24 18:57> Patient Disposition: Home <Keira Alcantara III, DO - Last Filed: 06/26/24 18:57> Condition: Stable <Keira Alcantara III, DO - Last Filed: 06/26/24 18:57> Instructions: Abdominal Pain (ED) <Keira Alcantara III, DO - Last Filed: 06/26/24 18:57> Additional Instructions: Please follow up with your PCP; you can always return to the ER for any further issues. <Keira Alcantara III, DO - Last Filed: 06/26/24 18:57> Patient Language: Cuban <Keira Alcantara III, DO - Last Filed: 06/26/24 18:57> Prescriptions: New acetaminophen [Tylenol Extra Strength] 500 mg tablet 1,000 mg PO Q6H PRN (Reason: pain) Qty: 50 0RF dicyclomine 20 mg tablet 20 mg PO TID PRN (Reason: abdominal pain) Qty: 30 0RF No Action sertraline 100 mg tablet 100 mg PO DAILY furosemide 20 mg tablet 20 mg PO DAILY sertraline 50 mg tablet 50 mg PO DAILY lisinopril 10 mg tablet 10 mg PO DAILY fenofibrate 160 mg tablet 160 mg PO DAILY albuterol sulfate [Ventolin HFA] 90 mcg/actuation HFA aerosol inhaler See Rx Instructions .ROUTE .COMPLEX PRN (Reason: Shortness Of Breath Or Wheezing) Rx Instructions: inhaled budesonide-formoterol [Symbicort] 80-4.5 mcg/actuation Hfa Aerosol Inhaler 1 inh INHALATION BID PRN (Reason: other) <Keira Ramos Alcantara III, DO - Last Filed: 06/26/24 18:57> Follow-up/Referrals: Gomez Bernal MD [Primary Care Provider] - <Keira Alcantara III, - Last Filed: 06/26/24 18:57>
[2024-06-26 16:20] LABS: Basophils Absolute Auto 0.1 K/mm3 (0.0-0.1); Eosinophils Absolute Auto 0.1 K/mm3 (0-0.3); Eosinophils Percent Auto 1.6 % (0-4.4); Hematocrit 42.9 % (37.0-47.0); Hemoglobin 13.9 g/dL (12.0-15.0); Immature Granulocyte Absolute 0.01 K/mm3 (0.00-0.031); Immature Granulocyte Percent A 0.1 % (0-0.5); Lymphocytes Absolute Auto 1.89 K/mm3 (0.9-3.2); Lymphocytes Percent Auto 26.8 % (18.3-44.2); Mean Corpuscular HGB Conc 32.4 g/dl (32-36); Mean Corpuscular Hemoglobin 28.4 pg (26-34); Mean Corpuscular Volume 87.7 fl (80-100); Mean Platelet Volume 12.5 fl (7.4-10.4); Monocytes Absolute Auto 0.5 K/mm3 (0.1-0.6); Monocytes Percent Auto 7.7 % (2.6-8.5); Neutrophils Absolute Auto 4.4 K/mm3 (1.3-6.7); Neutrophils Percent Auto 62.8 % (45.5-73.1); Platelet Count Result 277 k/mm3 (150-375); Red Blood Count 4.89 M/mm3 (4.2-5.4); Red Cell Distribution Width 13.8 % (11.5-14.5); White Blood Count 7.1 K/mm3 (4.5-10.0)
--- OUTSIDE RECORDS SUMMARY | 2024-06-26 16:21 | XMS_ITS | Referral Summary ---
Author Organization [facility] [address] [place] [id number] Care Team Providers Care Administrative Services Manager Name Role Phone Gomez Bernal MD Primary Care Provider [phone] Allergies No known active allergies Medications SYMBICORT [...] available. Assessment & Plan (03/15/2017 10:55 AM TUGBOAT OPERATOR): The pathophysiology of the condition ,meaning the [...] on file Legal Sex Female 8:25 PM TUGBOAT OPERATOR Gender Identity Not on file Sexual Orientation [...] Plan of Treatment Not on file Insurance [facility] Address: [facility] [address] [place] [address] [facility] CHOICE PLUS [facility] Address: [place] [address] Care Teams Administrative Services Manager Relationship Specialty Start Date End Date Gomez Bernal MD PCP - General Family Medicine 02/18/17
--- OUTSIDE RECORDS SUMMARY | 2024-06-26 16:21 | XMS_ITS | Clinical Summary ---
Author Organization [facility] [address] [place] [id number] Care Team Providers Care Deep Fryer Assembler Name Role Phone Gomez Bernal MD Primary Care Provider [phone] Allergies No known active allergies Medications SYMBICORT [...] available. Assessment & Plan (03/15/2017 10:55 AM INSIDE SALES ACCOUNT REPRESENTATIVE): The pathophysiology of the condition ,meaning the [...] on file Legal Sex Female 8:25 PM INSIDE SALES ACCOUNT REPRESENTATIVE Gender Identity Not on file Sexual Orientation [...] Plan of Treatment Not on file Insurance [facility] CHOICE PLUS Care Teams Deep Fryer Assembler Relationship Specialty Start Date End Date Gomez Bernal MD PCP - General Family Medicine 02/18/17
[2024-06-26] MEDS: ONDANSETRON INJ 4 MG/2 ML VIAL IV PUSH (16:23)
[2024-06-26] MEDS: MORPHINE SULFATE (*CRX) 4 MG/ML INJ IV PUSH (16:23)
[2024-06-26 16:30] LABS: Alanine Aminotransferase 22 U/L (6-35); Albumin Level 4.8 g/dL (3.5-5.1); Alkaline Phosphatase 47 U/L (38-126); Anion Gap 11 mmol/L (4-12); Aspartate Amino Transferase 35 U/L (14-36); Bilirubin,Total 0.5 mg/dL (0.2-1.3); Blood Urea Nitrogen 24 mg/dL (7-17); Calcium 9.2 mg/dL (8.4-10.2); Carbon Dioxide 24 mmol/L (22-30); Chloride 105 mmol/L (98-107); Estimated CRCL calculation 75 ml/min; Estimated Glomerular Filt Rate > 60; Glucose 103 mg/dL (65-110); Lipase 91 U/L (23-300); Sodium 140 mmol/L (137-145)
[2024-06-26 16:49] LABS: INR 0.9; Prothrombin Time 12.8 Seconds (11.1-14.7)
[2024-06-26 16:50] LABS: Partial Thromboplastin Time 29.1 Seconds (22.3-36.8)
--- NOTE | 2024-06-26 17:01 | PC.NURSE ---
Pt. able to ambulate to bathroom independently.
[2024-06-26 17:27] LABS: BEDSIDEPREGUCG Negative (Negative)
[2024-06-26 17:28] LABS: Add Urine Microscopic? NO; Appearance Urine Clear (Clear); Bilirubin Urine Negative (Negative); Blood Urine Negative (Negative); Color Urine Yellow (Yellow); Glucose Urine UA Negative (Negative); Ketones Urine Negative (Negative); Leukocyte Esterase Ur Negative LEU/UL (Negative); Nitrate Urine Negative (Negative); Protein Urine Negative (Negative); Specific Grav Ur 1.018 (1.001-1.035); Urobilinogen Urine 0.2 mg/dL (<2.0)
== END 2024-06-26 21:35 | disposition home or self-care (01) ==
PROVIDERS: Emergency Medicine; Emergency Provider Emergency Medicine; PCP Family Medicine
DX: R10.9 Unspecified abdominal pain (principal); J45.909 Unspecified asthma, uncomplicated; F32.A Depression, unspecified; E78.5 Hyperlipidemia, unspecified; I10 Essential (primary) hypertension
CPT/HCPCS: 36415; 74177; 80053; 81003; 81025; 83690; 85025; 85610; 85730; 96374; 96375; 99284; J2270; J2405; Q9967

== ENCOUNTER 2024-10-26 09:59 | Outpatient (CLI) | payer MEDICARE, OTHER, SELFPAY ==
--- NOTE | ~2024-10-26 | MM_ITS ---
EXAMINATION: MM screening [facility] BI w mirna HISTORY: Screening TECHNIQUE: Craniocaudal and mediolateral oblique 3-D tomosynthesis images were obtained and synthetic 2-D images were generated. CAD analysis was submitted and interpreted. COMPARISON: Mammograms from 05/16/2023 and 10/14/2021 BREAST PARENCHYMAL COMPOSITION: Not Dense: The breasts are almost entirely fatty. FINDINGS: There is no evidence of suspicious mass, calcification, or architectural distortion to suggest malignancy in either breast. [There has been no significant interval change. IMPRESSION: 1. No mammographic evidence of malignancy. Recommend routine screening mammography in one year. BI-RADS Category 1: Negative Reviewed, dictated, and finalized at Location A. Reviewed, dictated and finalized at location Q. IMPRESSION: 1. No mammographic evidence of malignancy. Recommend routine screening mammogra phy in one year. BI-RADS Category 1: Negative
--- OUTSIDE RECORDS SUMMARY | 2024-10-26 10:14 | XMS_ITS | Clinical Summary ---
Author Organization [facility] [address] [place] [id number] Care Team Providers Care Correctional Facility Nurse Name Role Phone Gomez Bernal MD Primary Care Provider [phone] Allergies No known active allergies Medications SYMBICORT [...] available. Assessment & Plan (03/15/2017 10:55 AM TEXTILE SLITTING MACHINE OPERATOR): The pathophysiology of the condition ,meaning [...] on file Legal Sex Female 8:25 PM TEXTILE SLITTING MACHINE OPERATOR Gender Identity Not on file Sexual [...] 1:20 PM CDT Height 177.8 cm (5' 10) 12/07/2017 1:20 PM CDT Body Mass Index 38.45 12/07/2017 1:20 PM CDT Plan of Treatment Not on file Insurance [facility] CHOICE PLUS Care Teams Correctional Facility Nurse Relationship Specialty Start Date End Date Gomez Bernal MD PCP - General Family Medicine 02/18/17
== END 2024-10-26 10:00 | disposition home or self-care (01) ==
LOC: ANHFOHIMG 10:02
PROVIDERS: PCP Family Medicine; Visit Provider Nurse Practitioner
DX: Z12.31 Encounter for screening mammogram for malignant neoplasm of breast (principal)
CPT/HCPCS: 77063; 77067